=== PATIENT | male | born 1985 | race Caucasian/White ===

== ENCOUNTER 2017-06-28 11:40 | Emergency (ER) | payer OTHER ==
[~2017-06-28] VITALS: Ht 182.9 cm; Wt 93.0 kg
[2017-06-28 12:05] VITALS: BP 120/73
[2017-06-28] MEDS ORDERED: Ketorolac 60mg Inj IM ONE (12:30)
--- NOTE | 2017-06-28 13:46 | Diagnostic Imaging Report ---
Indication: Neck pain Technique: Spiral acquisitions obtained through the cervical spine. No IV contrast utilized. Multiplanar reconstructions were generated. Total dose length product 461 mGycm. CTDIvol(s) 18 mGy. Dose reduction achieved using automated exposure control Comparison: None Findings: The bony alignment is normal. No prevertebral soft tissue swelling. No acute fractures. No dislocations. At C2-3, facet hypertrophy results in mild to moderate narrowing of the right neural foramen. No significant disc bulge or protrusion or spinal stenosis. At C4-5 there is mild narrowing of the right neural foramen. Short pedicles result in borderline narrowing of the spinal canal. There is mild degenerative disc narrowing at this level. At C5-6, there is mild degenerative disc narrowing. There is mild central posterior disc protrusion which, in combination with short pedicles, results in mild narrowing of the spinal canal and some impingement on the anterior aspect of the cord. There is minimal narrowing of the bilateral neural foramina due to facet hypertrophy. At C6-7, posterior osteophytes and short pedicles result in borderline narrowing of the spinal canal. There is moderate left and mild right neural foraminal stenosis. At the remaining levels, no significant disc bulge or protrusion, spinal stenosis, or neural foraminal narrowing. There is minimal right maxillary sinus disease. There is mild bilateral tonsillar and adenoidal prominence. Included extraspinal soft tissues are otherwise unremarkable. Impression: No acute bony trauma Degenerative changes and multilevel neural foraminal and borderline spinal stenosis, as detailed above Minimal sinus disease Nonspecific tonsillar and adenoidal hypertrophy, mild. The CT scanner at [facility] is accredited by the [employer] and the scans are performed using protocols designed to limit radiation exposure to as low as reasonably achievable to attain images of sufficient resolution adequate for diagnostic evaluation.
[2017-06-28] MEDS ORDERED: IBUPROFEN600 MG ORAL (13:57)
[2017-06-28] MEDS ORDERED: ROBAXIN-750750 MG PO (13:57)
[2017-06-28 14:16] VITALS: BP 123/76
--- NOTE | 2017-06-29 14:11 | Emergency Room Report ---
History of Present Illness General Chief Complaint: Upper Extremity Injury Source: Patient, Medical Record Present Illness HPI The patient is a 31-year-old male presenting for neck pain. 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 He denies any recent injury to the area. Pain is described as an 8/10 dull ache and radiates down the right arm. He states he also has occasional numbness and tingling of his arm. Worse with movement. It has been gradually increasing over the past week. He denies other symptoms including CP, SOB, rash, CRANDALL, dizziness, blurred vision Allergies: Coded Allergies: No Known Allergies (Unverified , 06/28/17) Patient History Past Medical History: see triage record Pertinent Family History: none Reviewed Nursing Documentation: PMH: Agreed, PSxH: Agreed Nursing Documentation-PMH Past Medical History: No History, Except For Review of Systems All Other Systems: negative except mentioned in HPI Physical Exam Vital Signs Date Time Temp Pulse Resp B/P Pulse Ox O2 Delivery O2 Flow Rate FiO2 06/28/17 11:50 98.8 68 18 124/74 97 Room Air Sp02 EP Interpretation: reviewed, normal General Appearance: no apparent distress, alert, GCS 15, non-toxic Head: normocephalic, atraumatic Eyes: bilateral eye PERRL, bilateral eye normal inspection ENT: hearing grossly normal, normal pharynx, no angioedema, normal voice Neck: full range of motion, supple, no bony tend, supple/symm/no masses, tender lateral - bilat cervical paraspinal tenderness Respiratory: chest non-tender, lungs clear, normal breath sounds, speaking full sentences Cardiovascular #1: regular rate, rhythm, no edema Musculoskeletal: back normal, gait/station normal, normal range of motion, non- tender Neurologic: alert, oriented x3, responsive, motor strength/tone normal, sensory intact, speech normal Psychiatric: judgement/insight normal, memory normal, mood/affect normal, no suicidal/homicidal ideation Skin: normal color, no rash, warm/dry, well hydrated Medical Decision Making PA Attestation Dr. Barba is my supervising physician. Patient management was discussed with my supervising physician Diagnostic Impression: Primary Impression: Disc disease, degenerative, cervical Additional Impression: Cervical strain Qualified Codes: S16.1XXA - Strain of muscle, fascia and tendon at neck level , initial encounter ER Course The patient is a 31-year-old male presenting for neck pain Differential diagnoses considered but not limited to: Cervical strain, disc herniation, fracture, among others PE: NAD neck is soft. Full AROM. Diffuse TTP including paraspinal muscles and midline. No step-offs Full AROM of shoulders acidizer water well strength 5/5 CT C spine shows degenerative changes and borderline stenosis. He is given toradol in the ER and states pain has decreased. He is given prescription for motrin and robaxin. CT report given to patient. he will FU with PMD. ER precautions given. CT/MRI/US Diagnostic Results CT/MRI/US Diagnostic Results : Imaging Test Ordered: CT C spine Impression No acute bony trauma Degenerative changes and multilevel neural foraminal and borderline spinal stenosis, as detailed above Last Vital Signs Date Time Temp Pulse Resp B/P Pulse Ox O2 Delivery O2 Flow Rate FiO2 06/28/17 14:16 52 16 123/76 100 Room Air 06/28/17 12:05 98.8 Status: improved Disposition: HOME, SELF-CARE Condition: Improved Scripts Methocarbamol* (ROBAXIN-750*) 750 Mg Tablet 750 MG PO TID, #28 TAB 0 Refills Prov: CAROLYNN BUSH P.A. 06/28/17 Ibuprofen* (MOTRIN*) 600 Mg Tablet 600 MG ORAL Q8H Y for For Pain, #30 TAB 0 Refills Prov: CAROLYNN BUSH P.A. 06/28/17 Patient Instructions: Degenerative Disk Disease, Muscle Strain Additional Instructions: I discussed my findings with the patient. All questions and concerns have been answered. Treatment and medication compliance have been addressed. I advised the patient that they need to follow up with PMD in 3-5 days. Return to ED if symptoms worsen, new symptoms arise, or if needed for any reason. Patient verbalized understanding of discharge instructions. CAROLYNN BUSH Jun 29, 2017 14:11
== END 2017-06-28 14:15 | disposition home or self-care (01) ==
LOC: EMR 12:32
DX: M50.322 Other cervical disc degeneration at C5-C6 level (principal); S16.1XXA Strain of muscle, fascia and tendon at neck level, initial encounter; Y93.72 Activity, wrestling; Y92.9 Unspecified place or not applicable
CPT/HCPCS: 72125; 96372; 99284